=== PATIENT | male | born 1940 | race Caucasian/White ===

== ENCOUNTER 2017-04-28 09:12 | Emergency (ER) | payer MEDICARE ==
[2017-04-28 09:12] VITALS: BMI 25.4
--- NOTE | 2017-04-28 10:30 | C.PDOC ---
Time Seen by Provider: 04/28/17 09:57 Chief Complaint (Nursing): Cough, Cold, Congestion History Per: Patient, Finding Fastener History/Exam Limitations: language barrier Onset/Duration Of Symptoms: Days (few) Current Symptoms Are (Timing): Still Present Associated Symptoms: Cough (mild), Nasal Congestion, Other (sneezing) Severity: Mild Additional History Per: Prior Records Past Medical History Reviewed: Historical Data, Nursing Documentation, Vital Signs Vital Signs: Last Vital Signs Temp 98.2 F 04/28/17 09:28 Pulse 60 04/28/17 09:28 Resp 18 04/28/17 09:28 BP 128/80 04/28/17 09:28 Pulse Ox 100 04/28/17 09:28 - Medical History PMH: Arthritis, Back Problems, Dementia, Depression, Diabetes, Gastritis, HTN, Hypothyroidism Surgical History: Endoscopy Other Surgeries: "eye procedure" yesterday - [facility] Procedures CLOSED ENDOSCOPIC BIOPSY OF LARGE INTESTINE (11/09/14) ESOPHAGOGASTRODUODENOSCOPY [EGD] W/CLOSED BIOPSY (11/23/14) INDIVID PSYCHOTHERAP NEC (03/30/15) OTHER GROUP THERAPY (03/30/15) Family History: States: Unknown Family Hx - Social History Hx Tobacco Use: No Hx Alcohol Use: No Hx Substance Use: No - Immunization History Hx Tetanus Toxoid Vaccination: Yes (2 years ago) Hx Influenza Vaccination: Yes Hx Pneumococcal Vaccination: No Review Of Systems Except As Marked, All Systems Reviewed And Found Negative. Constitutional: Negative for: Fever, Weakness Eyes: Negative for: Pain ENT: Positive for: Nose Congestion (with sneezing) Cardiovascular: Negative for: Chest Pain Respiratory: Negative for: Shortness of Breath, Hemoptysis Gastrointestinal: Negative for: Vomiting, Abdominal Pain Musculoskeletal: Negative for: Neck Pain Skin: Negative for: Rash Neurological: Negative for: Weakness, Numbness Physical Exam - Physical Exam Appears: Non-toxic, No Acute Distress Skin: Normal Color, Warm, Dry, No Rash Head: Atraumatic, Normacephalic Eye(s): bilateral: EOMI, right: Abnormal Pupil (Post surgical), Other ( conjunctival injection) Neck: Normal ROM, Supple Lymphatic: No Adenopathy Cardiovascular: Rhythm Regular Respiratory: Normal Breath Sounds, No Accessory Muscle Use Gastrointestinal/Abdominal: Soft, No Tenderness Extremity: Normal ROM Neurological/Psych: Oriented x3, Normal Speech, Normal Motor, Normal Sensation ED Course And Treatment O2 Sat by Pulse Oximetry: 100 Pulse Ox Interpretation: Normal Disposition Counseled Patient/Family Regarding: Diagnosis, Need For Followup, Rx Given - Disposition Referrals: Mendoza Owens MD [Staff Provider] - Disposition: HOME/ ROUTINE Disposition Time: 10:30 Condition: STABLE Additional Instructions: Follow up with your doctor. Return to the ER if you develop fever, shortness of breath, worsening of symptoms or if you have any other concerns. Prescriptions: Loratadine [Claritin] 10 mg PO DAILY #30 tab Instructions: Allergic Rhinitis (ED) Forms: [employer] [facility] (Indonesian) Print Language: LATVIAN - Clinical Impression Clinical Impression: Seasonal allergies
[2017-04-28 10:35] VITALS: BP 123/79; PULSE 56; RESP 17; TEMP 97.5; O2SAT 98
== END 2017-04-28 10:37 | disposition home or self-care (01) ==
LOC: C.ER 09:12
DX: J30.2 Other seasonal allergic rhinitis (principal)